=== PATIENT | female | born 1980 | race Caucasian/White ===

== ENCOUNTER 2024-12-20 01:40 | Day surgery (SDC) | payer BC, SELFPAY ==
[2024-12-13 14:10] VITALS: BMI 23.0
--- NOTE | 2024-12-13 14:15 | PC.NURSE ---
Report to the Outpatient Waiting Room, entrance under the green pavilion located off [facility], at time 7:45a.m. on date 12/20/2024. Planned Procedure Time: 09:45a.m..? Time changes happen often and if your time is changed the preop area will call you the afternoon before. - You and your visitor will be asked to self-screen and do not enter if you have any COVID symptoms. Please call surgeon if you need to reschedule. - A mask is optional within the hospital at this time. Patients may have clear liquids (water, carbonated beverages, clear teas, apple juice) until 3 hours prior to surgery with a maximum of 20 ounces. - No food from midnight until time of surgery and no smoking, or chewing tobacco (or any form of nicotine). No chewing gum, candy or mints. - Infants may have breast milk until 4 hours before surgery, infant formula 6 hours prior to surgery. - Children will be allowed to drink immediately following surgery.? If applicable, please bring a bottle or sippy cup to assist with drinking. Juice, water, soda, and popsicles are readily available.? For infants on formula, please bring formula the day of surgery.? Pacifiers are allowed. Take only the following medications with a SIP of water on the morning of surgery: N/A DO NOT STOP ANY OF YOUR OTHER PRESCRIPTION MEDICATIONS PRIOR TO SURGERY EXCEPT THE FOLLOWING Hold all vitamins and supplements for 3 days per anesthesiologist. Medications to discontinue per physician tirzepatide? Date to take last dose 12/10/2024 Please no make-up, nail citizen of [place], hairspray, perfume, deodorant, or body powder the day of surgery.? No jewelry (including any body piercings) or valuables the day of surgery, leave them at home.? Please take a shower or bath the night before, or the morning of, surgery with an antibacterial soap.? Wear comfortable, loose fitting clothing.? Children are encouraged to wear pajamas. - Jewelry must be removed prior to entering the operating room.? Rings and piercings that are not removed may be cut off. - The hospital will not accept responsibility for valuables.? - Please leave all valuables, including medications, at home the day of surgery. If you are going home after surgery, a licensed solo truck driver must drive you home.? - NO public transportation without another adult if you receive anesthesia. - We recommend that an adult stay with you for 24 hours following discharge. - We also recommend that you do not drive, make important decision, drink alcoholic beverages, or take any drugs that were not prescribed by your health care provider for at least 24 hours after your discharge time. For Pediatric surgeries, we recommend two adults accompany the child home. Follow any additional instructions given to you from your surgeon. Telephone instructions given to Carrol Nunez and asked if any additional questions and then verbalized understanding. Patient advised to call surgeon office or pre surgery nurse liaison [phone] if any additional questions.
--- NOTE | 2024-12-20 07:00 | WPDHPUPDATE1 ---
History and Physical Update Update Date/Time: 12/20/24 07:00 History and Physical has been reviewed, including an updated exam of the patient. There are NO changes in the patient's condition. Risks, benefits, and alternatives have been discussed and questions answered. Patient agrees to proceed with LEEP, top hat, ECC.
[2024-12-20 08:00] VITALS: BP 102/68; PULSE 71; RESP 18; TEMP 36.8; O2SAT 100
[2024-12-20 08:16] LABS: BEDSIDEPREGUCG Negative (Negative)
[2024-12-20] MEDS: LACTATED RINGERS 1,000 ML 30 ML IV CONT (08:20)
[2024-12-20] MEDS: ACETAMINOPHEN 500 MG TABLET 1000 MG PO (08:25)
--- NOTE | 2024-12-20 09:08 | WPDANESEPPF ---
Anes - Initial Pre Proc Eval Procedure: Operation Date: 12/20/24 09:45 Proposed Procedures p Loop Electrical Excision Procedure - Yun Bain MD Date/Time: 12/20/24 09:08 Surgeon: Yun Bain MD Pre Op Diagnosis: cervical dysplasia Patient Data Age: 44 Gender: F Height: 1.7 m Weight: 67.1 kg Last Vital Signs Temp 36.8 C 12/20/24 08:00 Pulse 71 12/20/24 08:00 Resp 18 12/20/24 08:00 BP 102/68 12/20/24 08:00 Pulse Ox 100 12/20/24 08:00 O2 Del Method Room Air 12/20/24 08:00 Allergies Allergy/AdvReac Type Severity Reaction Status Date / Time No Known Allergies Allergy Verified 12/20/24 08:04 Home Medications ?Medication ?Instructions ?Recorded ?Confirmed ?Type cholecalciferol (vitamin D3) 10 10 mcg PO DAILY 09/28/24 12/20/24 History mcg (400 unit) capsule folic acid 1 mg tablet 1 mg PO DAILY 09/28/24 12/20/24 History tirzepatide (weight loss) 2.5 2.5 mg subcut WEEKLY 11/11/24 12/13/24 History mg/0.5 mL subcutaneous solution (Zepbound) Laboratory Tests 12/20/24 08:13 POC Urine HCG, Qual Negative (Negative) Patient hx anesthesia problems: none Family hx anesthesia problems: none Results Review: All pre-operative results and documents have been reviewed as part of the pre-operative evaluation. [facility] Past Medical History Medical History Leukopenia Thyroid nodule History of HPV infection Surgical History Surgical History H/O gynecological procedure 2021 Mirena IUD insertion Hx laparoscopic cholecystectomy Family History Family History Other Brain tumor High cholesterol Thyroid cyst Social History Social History Smoking status: Never smoker Alcohol intake: current Drinks per week: 3 Alcohol use details: socially Substance use: never Substance use type: does not use Do You Feel Safe in your Home?: Yes Lack of Transportation: No Lack of Food: Never True Current Housing: Decline to Answer Concerned About Future Housing: Decline to Answer Difficulty Paying Gas/Electric Bills: Decline to Answer Difficulty Paying for Meds: Decline to Answer Currently Unemployed: Decline to Answer Education: Decline to Answer Difficulty w/ Childcare or Family Care: Decline to Answer Living arrangements: with family Additional occupation/education comments: real estate Gender identity (if verbalized by the patient): Female Sexual Orientation (if Verbalized by the Patient): denied Anes - Eval Final PreProcedure Day of Procedure 12/20/24 09:08 Patient weight: normal Heart: regular rate and rhythm Lungs: clear to auscultation Airway: Mallampati scale class II Neurological: alert and oriented Last oral intake: >/= 8 hours ASA classification: II Emergent: no Anesthetic plan: proceed Anesthesia type and monitoring: general GIVS and standard monitoring Results Review: All pre-operative results and documents have been reviewed as part of the pre-operative evaluation. Informed Consent: The patient's anesthetic plan and its attendant risks and benefits were discussed with the patient/family/POA. Questions were solicited and answers provided to the satisfaction of the patient/family/POA.
[2024-12-20] MEDS: BUPIVACAINE/EPINEPHRINE 0.5% 30 ML VIAL 10 ML INFILTRATE (10:08)
--- NOTE | 2024-12-20 10:46 | W.PM.PROC2 ---
Procedure Note - Detailed Date of Procedure 12/20/24 Pre-op Diagnosis Moderate cervical dysplasia (NAOMI 2) Post-op Diagnosis Same Procedure Performed LEEP, top hat, ECC Surgeon Yun Bain MD Anesthesia MAC and Local (8cc 0.5% Marcaine w/ epi) Findings Normal multiparous cervix, IUD strings noted. Lugol's applied; no uptake from 5-8 o'clock. One IUD string was cut; but one remained normal length. Monsel's applied. Good hemostasis at end of case. Description of Procedure Carrol was taken to the operating room where she was placed under MAC sedation without complications. She was then prepped and draped in the normal fashion in the dorsal lithotomy position with her legs in low Rodo stirrups. A time-out was performed and no preoperative antibiotics were indicated. A coated speculum attached to suction was then placed within the vagina, where the cervix was easily identified. The cervix was then injected with 0.25% Marcaine with epinephrine (8cc were used). Lugol?s solution was then applied to the cervix. No uptake was noted from 5-8 o'clock near endocervical/ectocerivcal margin. The LEEP was then obtained in two separate swipes from the patient?s left to right to avoid cutting the IUD strings. The LEEPs were removed and a silk stitch was placed at 6:00 (posterior leep) and 12:00 (anterior leep) to orient the tissue for pathology and sent separately. A top-hat was then obtained in the same manner, anterior and posterior segments were sent separately. An ECC was then collected. The LEEP bed was then cauterized using the roller ball. Monsel?s solution was then placed in the LEEP bed. Good hemostasis was noted. Sponge, lap, instrument, and needle counts were correct at the end of the procedure. The patient was awoken from anesthesia and taken to recovery in a stable condition with plans of same-day discharge home. Estimated Blood Loss 10 IV Fluids 800 Pathology Yes (post leep (stitch 6o'clock), ant leep (stitch 12o'clock), ant top hat, post top hat, ECC) Complications No immediate complications Condition Stable Disposition Same day [facility] Billing Surgery - Charge Forward: Surgery Billing
[2024-12-20 10:48] VITALS: BP 100/99; PULSE 80; RESP 16; O2SAT 100
[2024-12-20 11:18] VITALS: BP 104/66; PULSE 74; RESP 16
== END 2024-12-20 11:30 | disposition home or self-care (01) ==
PROVIDERS: PCP Family Medicine; Visit Provider Obstetrics & Gynecology
PROC: 0UBC7ZZ Excision of Cervix, Via Natural or Artificial Opening (ICD-10-PCS; CPT 57522; principal; 2024-12-20 09:45)
DX: N87.0 Mild cervical dysplasia (principal); N72 Inflammatory disease of cervix uteri; N88.8 Other specified noninflammatory disorders of cervix uteri; Z97.5 Presence of (intrauterine) contraceptive device
CPT/HCPCS: 57522; 88305; 88307; A9270; J2250; J2704; J3010; J7120